=== PATIENT | male | born 1980 | race American Indian/Alaskan Native ===

== ENCOUNTER 2017-12-17 01:00 | Emergency (ER) | payer SELFPAY ==
[2017-12-17 01:07] VITALS: TEMP 98.5
[2017-12-17] MEDS ORDERED: Acetaminophen-Codeine 300/30 mg Tab PO STA (01:59)
--- NOTE | 2017-12-17 02:00 | C.PDOC ---
History Of Present Illness 37 year old male presents to the ED for evaluation of pain to his left upper tooth which began earlier today. Patient states he has individual brackets on his tooth. He felt pressure to the left upper posterior tooth after eating, and took a pin order to dislodge the bracket. Patient reports taking two doses of 800mg Motrin with no relief. He denies trauma or facial swelling. Time Seen by Provider: 12/17/17 01:27 Chief Complaint (Nursing): Dental Pain History Per: Patient History/Exam Limitations: no limitations Onset/Duration Of Symptoms: Hrs Current Symptoms Are (Timing): Still Present Quality: Positive for: "Pain" Additional History Per: Patient Past Medical History Reviewed: Historical Data, Nursing Documentation, Vital Signs Vital Signs: Last Vital Signs Temp 98.5 F 12/17/17 01:03 Pulse 80 12/17/17 02:17 Resp 14 12/17/17 02:17 BP 130/80 12/17/17 02:17 Pulse Ox 98 12/17/17 04:54 - Medical History PMH: No Chronic Diseases Surgical History: No Surg Hx Family History: States: Unknown Family Hx - Social History Hx Tobacco Use: No Hx Alcohol Use: No Hx Substance Use: No - Immunization History Hx Tetanus Toxoid Vaccination: No Hx Influenza Vaccination: No Hx Pneumococcal Vaccination: No Review Of Systems ENT: Positive for: Mouth Swelling (left upper tooth ). Negative for: Other ( facial swelling ) Physical Exam - Physical Exam Appears: Non-toxic, No Acute Distress Skin: Normal Color, Warm, Dry Head: Atraumatic, Normacephalic, No Tenderness, No Swelling (facial ) Eye(s): bilateral: Normal Inspection Oral Mucosa: Moist Teeth: No Tender To Palpation, Other (dental brace present on left upper tooth ) Gingiva: No Swelling, No Tender Neck: Supple Neurological/Psych: Oriented x3, Normal Speech, Normal Cognition ED Course And Treatment O2 Sat by Pulse Oximetry: 98 (on RA) Pulse Ox Interpretation: Normal Progress Note: Tylenol/Codeine PO administered. On re-exam, patient is resting comfortably, showing no signs of distress and reports an improvement in his symptoms. Patient is stable for discharge and is advised to f/u with dental care within 1-2 days for further evaluation. Disposition Counseled Patient/Family Regarding: Diagnosis, Need For Followup, Rx Given - Disposition Referrals: Dentist, Dental officce [Other] Disposition: HOME/ ROUTINE Disposition Time: 01:58 Condition: STABLE Additional Instructions: Please follow up with dentist tomorrow Continue motrin PO May take codeine for severe pain Follow up with PMD Return to ER if worse Prescriptions: Acetaminophen with Codeine [Tylenol with Codeine #3 Tablet] 1 each PO Q6 #10 tablet Instructions: Dental Pain (DC) Forms: [facility] (Stateless), Gen Discharge Inst Amharic - Clinical Impression Clinical Impression: Toothache - PA / [employer]TER / Resident Statement MD/DO has reviewed & agrees with the documentation as recorded. - Scribe Statement The provider has reviewed the documentation as recorded by the Scribe (Rakel Zavala) All medical record entries made by the Scribe were at my direction and personally dictated by me. I have reviewed the chart and agree that the record accurately reflects my personal performance of the history, physical exam, medical decision making, and the department course for this patient. I have also personally directed, reviewed, and agree with the discharge instructions and disposition.
[2017-12-17] MEDS ORDERED: Acetaminophen-Codeine 300/30 mg Tab PO ONE (02:11)
[2017-12-17 02:18] VITALS: BP 130/80; PULSE 80; RESP 14
[2017-12-17 04:51] VITALS: O2SAT 98
== END 2017-12-17 02:27 | disposition home or self-care (01) ==
LOC: C.ER 01:00
DX: K08.89 Other specified disorders of teeth and supporting structures (principal)